=== PATIENT | female | born 1965 | race African-American/Black ===

== ENCOUNTER 2019-04-30 07:49 | Outpatient (CLI) | payer OTHER ==
--- NOTE | 2019-04-30 11:08 | MRI ---
MRI OF RIGHT SHOULDER PERFORMED WITHOUT CONTRAST ENHANCEMENT: HISTORY: Right shoulder pain. History of 2 previous surgeries. FINDINGS: The AC joint is unremarkable. The supra- as well as infraspinatus tendons are intact. The subscapularis muscle and tendon are intact. A tenodesis has been performed. The labrum is other xiao unremarkable. The inferior glenohumeral ligament is intact. IMPRESSION: 1. No evidence of rotator cuff injury. 2. Tenodesis of the biceps tendon. POS: TPC
== END 2019-04-30 07:50 | disposition home or self-care (01) ==
LOC: BICMRI 07:49
PROVIDERS: ATTEND Anesthesiology Pain Medicine
DX: M25.511 Pain in right shoulder (principal); M75.21 Bicipital tendinitis, right shoulder

== ENCOUNTER 2020-02-18 12:48 | Outpatient (CLI) | payer OTHER ==
--- NOTE | 2020-02-18 14:48 | MRI ---
MRI CERVICAL SPINE: Date: 02/18/2020 PROVIDED CLINICAL HISTORY: Cervical radiculopathy. FINDINGS: Evaluation is limited by patient motion. Cervical alignment appears normal. There is straightening of normal cervical lordosis. Vertebral body heights and intervertebral disc space heights appear preser chely. No focal concerning regional marrow signal abnormality is evident. The visualized posterior toya a, cervicomedullary junction, and cervical spinal cord demonstrate a normal MR appearance. At C2-3, there is no significant central canal or foraminal narrowing apparent. There is mild bilater al facet arthritis. At C3-4, there is no significant central canal or foraminal narrowing apparent. There is mild bilater al facet arthritis. At C4-5, there is no significant central canal or foraminal narrowing apparent. At C5-6, there is a disc osteophyte complex in the left foraminal region producing mild to moderate f oraminal narrowing in combination of uncinate process hypertrophy. No significant central canal or ri ght foraminal narrowing apparent. At C6-7, there is no significant central canal or foraminal narrowing apparent. At C7-T1, there is no significant central canal or foraminal narrowing apparent. IMPRESSION: Mild cervical degenerative changes with foraminal narrowing left of midline at C5-6 as described. POS: NOLAN
== END 2020-02-18 12:49 | disposition home or self-care (01) ==
LOC: BICMRI 12:48
PROVIDERS: ATTEND Anesthesiology Pain Medicine
DX: M47.22 Other spondylosis with radiculopathy, cervical region (principal); M54.2 Cervicalgia; M79.621 Pain in right upper arm; M79.601 Pain in right arm; M48.02 Spinal stenosis, cervical region; Z79.891 Long term (current) use of opiate analgesic; Z68.41 Body mass index [BMI] 40.0-44.9, adult
CPT/HCPCS: 72141

== ENCOUNTER 2020-07-02 12:45 | Outpatient (CLI) | payer OTHER ==
--- NOTE | 2020-07-02 13:02 | RAD ---
2 view chest: [07/02/2020] Comparison:06/13/2020 HISTORY: Short of breath FINDINGS: Heart and mediastinal contours are stable. Mild perihilar and bibasilar interstitial promin ence is noted, less conspicuous than on the prior exam. No focal consolidation or alveolar edema. IMPRESSION: Mild nonspecific interstitial prominence, which appears somewhat improved when compared t o prior imaging. No focal consolidation or alveolar edema.
== END 2020-07-02 12:46 | disposition home or self-care (01) ==
LOC: BICRAD 12:45
PROVIDERS: ATTEND Internal Medicine Pulmonary Disease
DX: R06.00 Dyspnea, unspecified (principal); J84.89 Other specified interstitial pulmonary diseases
CPT/HCPCS: 71046

== ENCOUNTER 2020-08-14 09:06 | Emergency (ER) | payer OTHER ==
[2020-08-14 10:31] LABS: #Lymphocytes 1.2 thou/uL (1.20-3.40); #Monocytes 0.2 thou/uL (0.11-0.59); #Neutrophils 2.6 thou/uL (1.40-6.50); %Basophils 0.2 % (0.0-1.0); %Eosinophils 0.2 % (0.0-10.0); %Lymphocytes 28.8 % (21.0-51.0); %Monocytes 5.7 % (0.0-10.0); %Neutrophils 65.1 % (42.0-75.0); Hemoglobin 11.5 g/dL (12.0-16.0); Mean Corpuscular HGB CONC 30.9 g/dL (32.0-36.0); Mean Corpuscular Hemoglobin 27.9 pg (27.0-31.0); Mean Corpuscular Volume 90.5 fL (78.0-98.0); Mean Platelet Volume 10.4 fL (7.4-10.4); Platelet Count 153 thou/uL (130-400); RBC Distribution Width 13.4 % (11.5-14.5); Red Blood Cell (RBC) Count 4.11 mill/uL (4.20-5.40)
[2020-08-14 10:50] LABS: ALT (SGPT) 51 U/L (8-55); AST (SGOT) 41 U/L (5-34); Albumin 3.8 g/dL (3.5-5.0); Alkaline Phosphatase 78 U/L (40-110); Anion Gap 12 mmol/L (10-20); BUN (Urea Nitrogen) 14 mg/dL (9.8-20.1); Bilirubin, Total 0.6 mg/dL (0.2-1.2); Calc. Creatinine Clearance 0 mL/min (70-130); Calcium 9.5 mg/dL (7.8-10.44); Carbon Dioxide 28 mmol/L (22-29); Chloride 106 mmol/L (98-107); Estimated GFR-MDRD 72; Globulin 3.9 g/dL (2.4-3.5); Glucose 94 mg/dL (70-105); Potassium 4.5 mmol/L (3.5-5.1); Protein, Total 7.7 g/dL (6.0-8.3); Sodium 141 mmol/L (136-145)
--- NOTE | 2020-08-14 11:20 | RAD ---
PORTABLE CHEST 1 VIEW: Date: 08/14/2020 Time: 1027 hours HISTORY: Shortness of breath. COMPARISON: 07/02/2020. FINDINGS/IMPRESSION: The heart size is borderline. The lungs are well expanded with mild prominence of the interstitial ma rkings. No lobar consolidation, pneumothoraces, bradley pulmonary edema, or large effusions are seen. POS: AH
[2020-08-14] MEDS ORDERED: Furosemide 40 MG/4 ML VIAL ONE (11:31)
[2020-08-14] MEDS ORDERED: Nitroglycerin 2% Ointment 1 INCH/1 GM Packet ONE (11:31)
[2020-08-14] MEDS ORDERED: HYDROcodone/Acetaminophen 5/325 mg Tablet ONE (12:05)
--- NOTE | 2020-08-14 12:39 | PDOC.HHP ---
Hospitalist HPI - History of Present Illness Shortness of breath, N/V/D History of Present Illness: PCP: Miguelito Patient is a 55-year-old with diagnosis of congestive heart failure recently who has been having shortness of breath since November. She states that she believes she has signs of Covid because she has shortness of breath however she has not had fever or body aches. She believes that after she got a trigger point injection back in November start developing symptoms of Covid and does not think she has signs of congestive heart failure, although she was diagnosed with this recently. She states anytime she walks she has some shortness of breath that has been progressively worsening. When she went to see a cloth shrinking supervisor who told her she did not have asthma or COPD. However she does use a albuterol inhaler at home. ED Course: VITAL SIGNS [facility] Aug 14, 2020 09:18 RAFI Childs Rebecca BP: 180/121, Pulse: 99, Resp: 18, Temp: 98.4 (Oral), Pain: 10, O2 sat: 97, Time: 08/14/2020 09:18. VITAL SIGNS [facility] Aug 14, 2020 11:30 RAFI Childs Rebecca BP: 174/119, Pulse: 98, Resp: 20, Pain: 10, O2 sat: 98 on (Room Air), Time: 08/14/2020 11:30. VITAL SIGNS [facility] Aug 14, 2020 12:11 RAFI Childs Rebecca BP: 164/118, Pulse: 95, Resp: 18, Pain: 10, O2 sat: 100 on (Room Air), Time: 08/14/2020 12:11. Medication administration: HYDROcodone-acetaminophen 5/325 tab(s) Oral Given 12:09 08/14/2020 furosemide injection 40 mg IV Push Given 11:45 08/14/2020 Nitro-Bid transdermal 1 inch Topical Given 11:43 08/14/2020 Hospitalist ROS - Review of Systems All other systems reviewed; all pertinent +/- noted in HPI/Subj - Medication Medications: metFORMIN [facility] Aug 14, 2020 09:22 RAFI Gunn, Whitney tablet : Strength - 500 mg : ORAL Patient Dose: 2 tab(s) Oral 2 times a day (before meals). [place] [facility] Aug 14, 2020 09:23 Amadeo, RN, Sally CAPSULE (HARD, SOFT, ETC.) : Strength - 100 mg : ORAL Patient Dose: 100 mg Oral 2 times a day. [place] [facility] Aug 14, 2020 09:23 RAFI Childs, Sally TABLET : Strength - 5 mg-325 mg : ORAL Patient Dose: 1 tab(s) Oral As Needed. Allergies: No Known Drug Allergies Hospitalist Results - Labs Result Diagrams: 08/14/20 10:19 08/14/20 10:19 Lab results: WBC 4.0 thou/uL (4.8-10.8) L 08/14/20 10:19 Hgb 11.5 g/dL (12.0-16.0) L 08/14/20 10:19 Hct 37.2 % (36.0-47.0) 08/14/20 10:19 MCV 90.5 fL (78.0-98.0) 08/14/20 10:19 Plt Count 153 thou/uL (130-400) 08/14/20 10:19 Neutrophils % 65.1 % (42.0-75.0) 08/14/20 10:19 Sodium 141 mmol/L (136-145) 08/14/20 10:19 Potassium 4.5 mmol/L (3.5-5.1) 08/14/20 10:19 Chloride 106 mmol/L (98-107) 08/14/20 10:19 Carbon Dioxide 28 mmol/L (22-29) 08/14/20 10:19 BUN 14 mg/dL (9.8-20.1) 08/14/20 10:19 Creatinine 0.97 mg/dL (0.6-1.1) 08/14/20 10:19 Glucose 94 mg/dL (70-105) 08/14/20 10:19 Calcium 9.5 mg/dL (7.8-10.44) 08/14/20 10:19 Total Bilirubin 0.6 mg/dL (0.2-1.2) 08/14/20 10:19 AST 41 U/L (5-34) H 08/14/20 10:19 ALT 51 U/L (8-55) 08/14/20 10:19 Alkaline Phosphatase 78 U/L (40-110) 08/14/20 10:19 Troponin I Less than 0.010 ng/mL (< 0.028) 08/14/20 10:19 B-Natriuretic Peptide 826.0 pg/mL (0-100) H 08/14/20 10:19 Serum Total Protein 7.7 g/dL (6.0-8.3) 08/14/20 10:19 Albumin 3.8 g/dL (3.5-5.0) 08/14/20 10:19 - EKG Interpretation EK lead EKG interpreted by Emergency Department Physician at time of study, Normal sinus rhythm heart rate is 94 bpm voltage criteria for low ventricular hypertrophy prolonged QT normal axis no ST elevation depression overall impression is nonspecific. - Radiology Interpretation Chest x-ray Status: report reviewed by me Additional Comment: FINDINGS/IMPRESSION: The heart size is borderline. The lungs are well expanded with mild prominence of the interstitial markings. No lobar consolidation, pneumothoraces, bradley pulmonary edema, or large effusions are seen. Hospitalist H&P A/P - Plan Plan: KRAIG(JULIA) [phone]
[2020-08-14 13:44] LABS: SARS-CoV-2 NAA Rapid Test Not Detected (NotDetected)
== END 2020-08-14 13:37 | disposition home or self-care (01) ==
LOC: ERS 09:06
DX: I50.9 Heart failure, unspecified (principal); Z20.828 Contact with and (suspected) exposure to other viral communicable diseases; F32.9 Major depressive disorder, single episode, unspecified; F41.9 Anxiety disorder, unspecified
CPT/HCPCS: 36415; 71045; 80053; 83880; 84484; 85025; 93005; 96374; J1940; U0002

== ENCOUNTER 2020-08-15 07:02 | Outpatient (CLI) | payer OTHER ==
[2020-08-16 15:21] LABS: SARS-CoV-2 MS2 Positive; SARS-CoV-2 N Gene Negative; SARS-CoV-2 S Gene Negative; SARS-CoV-2 by NAA Not Detected (NotDetected); SARS-CoV-2 orf1ab Negative
== END 2020-08-15 07:03 | disposition home or self-care (01) ==
LOC: LABBT 07:02
PROVIDERS: ATTEND Internal Medicine Cardiovascular Disease
DX: Z20.828 Contact with and (suspected) exposure to other viral communicable diseases (principal)
CPT/HCPCS: 87635; U0003

== ENCOUNTER 2020-08-20 07:19 | Day surgery (SDC) | payer OTHER ==
[2020-08-18 14:47] VITALS: BMI 44.2
[2020-08-20] MEDS ORDERED: Iopamidol 370 76% 100 ML VIAL ONE (08:37)
[2020-08-20 09:02] LABS: Cardiac Risk 2.9 (Less than 4.5)
[2020-08-20] MEDS ORDERED: Lidocaine 1% (PF) 30 ML VIAL ONE (09:40)
[2020-08-20] MEDS ORDERED: Heparin 10,000 UNITS/ 10 ML VIAL ONE (09:40)
[2020-08-20] MEDS ORDERED: Fentanyl 100 MCG/2 ML VIAL ONE (10:01)
[2020-08-20] MEDS ORDERED: Midazolam HCl 2 mg/2 ml Vial ONE (10:02)
== END 2020-08-20 14:11 | disposition home or self-care (01) ==
LOC: CCL 07:19
PROVIDERS: ATTEND Internal Medicine Cardiovascular Disease
PROC: 4A023N7 Measurement of Cardiac Sampling and Pressure, Left Heart, Percutaneous Approach (ICD-10-PCS; principal; 2020-08-20)
PROC: B2111ZZ Fluoroscopy of Multiple Coronary Arteries using Low Osmolar Contrast (ICD-10-PCS; principal; 2020-08-20)
DX: I42.0 Dilated cardiomyopathy (principal); F41.9 Anxiety disorder, unspecified; F32.9 Major depressive disorder, single episode, unspecified; Z79.899 Other long term (current) drug therapy; Z88.8 Allergy status to other drugs, medicaments and biological substances
CPT/HCPCS: 36415; 80061; 93458; 99152; J1644; J2001; J2250; J3010; Q9967

== ENCOUNTER 2020-11-28 14:30 | Emergency (ER) | payer OTHER ==
--- NOTE | 2020-11-28 15:26 | RAD ---
EXAM: Portable chest PROVIDED CLINICAL HISTORY: Dyspnea COMPARISON: 09/25/2020 FINDINGS: Cardiac and mediastinal silhouette is within normal limits. No focal consolidation, pleural fluid or pneumothorax evident. Stable chronic appearing interstitial opacity. IMPRESSION: No evidence for an acute cardiopulmonary process.
[2020-11-29 04:10] LABS: SARS-CoV-2 PCR by NAA DETECTED (NotDetected)
== END 2020-11-28 16:30 | disposition home or self-care (01) ==
LOC: ERS 14:30
DX: U07.1 COVID-19 (principal); E78.5 Hyperlipidemia, unspecified; I11.0 Hypertensive heart disease with heart failure; I50.9 Heart failure, unspecified; Z79.899 Other long term (current) drug therapy
CPT/HCPCS: 71045; 87635; U0003; U0005